=== PATIENT | male | born 1945 | race Caucasian/White ===

== ENCOUNTER 2020-12-17 21:49 | Emergency (ER) | payer MEDICARE, OTHER ==
[2020-12-17 23:38] LABS: BASOPHIL 0.7 % (0-2); HCT 36.3 % (42.0-52.0); HGB 12.1 g/dl (13.2-18.0); LYMPHOCYTE 35.9 % (15-48); MCH 31.3 pg (25.0-31.0); MCHC 33.3 g/dL (32.0-36.0); MONOCYTE 12.4 % (0-12); MPV 9.7 fL (6.0-9.5); NEUTROPHIL 48.8 % (41-80); NRBC 0; PLT 212 K/uL (150-400); RBC 3.86 M/uL (4.70-6.00); RDW 12.2 % (11.5-14.0); WBC 4.6 K/uL (4.0-10.5)
[2020-12-17 23:47] LABS: INR 1.02 (0.9-1.2); PROTHROMBIN TIME 12.7 SECONDS (11.4-13.6); PTT 28.3 SECONDS (22.2-34.7)
[2020-12-17 23:53] LABS: ALBUMIN 3.3 g/dL (3.4-5.0); BILIRUBIN - TOTAL 0.4 mg/dL (0.2-1.0); BUN/CREAT RATIO (CALC) 10.2 RATIO; CREATININE 1.27 mg/dL (0.67-1.17); GLOBULIN (CALCULATION) 3.5 g/dL; POTASSIUM 3.8 mmol/L (3.5-5.1); TOTAL PROTEIN 6.8 g/dL (6.4-8.2)
[2020-12-18 00:01] LABS: PRO-BNP 50 pg/mL (<450)
== END 2020-12-18 01:39 | disposition home or self-care (01) ==
LOC: FER 21:49
PROVIDERS: Student in an Organized Health Care Education/Training Program
DX: R55 Syncope and collapse (principal)
CPT/HCPCS: 36415; 70450; 71045; 80053; 83880; 84484; 85025; 85610; 85730; 93005

== ENCOUNTER 2020-12-20 11:24 | Emergency (ER) | payer MEDICARE, OTHER ==
[2020-12-20 13:34] LABS: BASOPHIL 0.5 % (0-2); EOSINOPHIL 1.3 % (0-7); HCT 40.3 % (42.0-52.0); HGB 13.4 g/dl (13.2-18.0); LYMPHOCYTE 33.7 % (15-48); MCH 30.9 pg (25.0-31.0); MCHC 33.3 g/dL (32.0-36.0); MCV 92.9 fL (78.0-100.0); MONOCYTE 8.3 % (0-12); MPV 9.5 fL (6.0-9.5); NEUTROPHIL 55.7 % (41-80); NRBC 0; PLT 201 K/uL (150-400); RBC 4.34 M/uL (4.70-6.00); RDW 11.9 % (11.5-14.0); WBC 3.7 K/uL (4.0-10.5)
[2020-12-20 14:06] LABS: BUN/CREAT RATIO (CALC) 11.1 RATIO; CREATININE 0.99 mg/dL (0.67-1.17); POTASSIUM 4.2 mmol/L (3.5-5.1)
== END 2020-12-20 15:00 | disposition home or self-care (01) ==
LOC: FER 11:24
PROVIDERS: Emergency Medicine
DX: R42 Dizziness and giddiness (principal); Z85.038 Personal history of other malignant neoplasm of large intestine
CPT/HCPCS: 36415; 70551; 80048; 85025; 93005

== ENCOUNTER 2021-03-21 17:06 | Emergency (ER) | payer MEDICARE, OTHER ==
[2021-03-21 19:33] LABS: BASOPHIL 0.4 % (0-2); EOSINOPHIL 2.9 % (0-7); HCT 40.1 % (42.0-52.0); HGB 13.4 g/dl (13.2-18.0); LYMPHOCYTE 38.2 % (15-48); MCH 31.5 pg (25.0-31.0); MCHC 33.4 g/dL (32.0-36.0); MCV 94.1 fL (78.0-100.0); MPV 9.7 fL (6.0-9.5); NEUTROPHIL 49.1 % (41-80); NRBC 0; PLT 212 K/uL (150-400); RBC 4.26 M/uL (4.70-6.00); RDW 12.3 % (11.5-14.0); WBC 4.6 K/uL (4.0-10.5)
[2021-03-21 19:36] LABS: BILIRUBIN NEGATIVE (NEGATIVE); BLOOD TRACE-INTACT Ery/uL (NEGATIVE); CLARITY CLEAR (CLEAR); COLOR YELLOW (YELLOW); GLUCOSE (U) NORMAL (NORMAL); LEUKOCYTES NEGATIVE Leu/uL (NEGATIVE); NITRITE NEGATIVE (NEGATIVE); PROTEIN NEGATIVE (NEGATIVE); UROBILINOGEN 0.2 mg/dL (0.2-1.0)
[2021-03-21 19:43] LABS: SQUAMOUS EPITHELIAL CELLS RARE
[2021-03-21 19:56] LABS: ALBUMIN 3.5 g/dL (3.4-5.0); BILIRUBIN - TOTAL 0.4 mg/dL (0.2-1.0); CREATININE 1.1 mg/dL (0.67-1.17); FT4 (FREE T4) 0.8 ng/dL (0.76-1.46); GLOBULIN (CALCULATION) 4.1 g/dL; POTASSIUM 3.9 mmol/L (3.5-5.1); TOTAL PROTEIN 7.6 g/dL (6.4-8.2)
== END 2021-03-21 23:35 | disposition home or self-care (01) ==
LOC: FER 17:06
PROVIDERS: Emergency Medicine Emergency Medical Services
DX: R55 Syncope and collapse (principal); R00.1 Bradycardia, unspecified; E78.5 Hyperlipidemia, unspecified
CPT/HCPCS: 36415; 70450; 71045; 72125; 80053; 81001; 84439; 84443; 84484; 85025; 85379; 93005; J7030